=== PATIENT | male | born 1955 | race Caucasian/White ===

== ENCOUNTER → 2017-04-28 | Outpatient (CLI) | payer OTHER ==
--- NOTE | ~2017-04-28 | MR113 ---
[facility] A Service of [facility] & [facility] RADIOLOGY TEXT RESULTS PATIENT: SARA MAGANA LOCATION: [facility] : 55 UNIT #: [id number] AGE: [address]: Gabino Mcgovern MD SEX: M ORDER DR: [id number] [address] [address] [id number] MR#: [id number] Acc #: [id number] NAME: SARA MAGANA : 1955 SEX: M STUDY DATE/TIME: 04/28/2017 13:13 UNIT: [facility] ROOM: STUDY DESCRIPTION: MR Lumbar Wo Contrast Attending Physician: Gabino Mcgovern M.D. Referring Physician: Gabino Mcgovern M.D. Ordering Physician: Gabino Mcgovern M.D. Primary Care Physician: Gabino Mcgovern M.D. MRI CENTER REPORT This report is preliminary unless electronic signature is present. EXAM MRI of the lumbar spine without contrast dated 04/28/2017. COMPARISON Plain films lumbar spine dated 04/24/2017. HISTORY Increasing low back pain for 3-4 months, worse in the last month, with right lower extremity radiculopathy. TECHNIQUE Multisequence multiplanar imaging of the lumbar spine was obtained without contrast. FINDINGS Vertebral body heights and alignment are preserved. Degenerative disc signal loss is at multiple levels. Conus terminates at T12-L1. Signals of conus and cauda equina are within normal limits. Pre- and paravertebral soft tissues do not demonstrate any significant abnormality. L1-2: Suspicious small left foraminal protrusion extending towards the extraforaminal region. Mild left neural foraminal encroachment. No canal stenosis. L2-3: Concentric disc bulge with superimposed bilateral foraminal to extraforaminal broad-based protrusions, slightly prominent in the left. Mild bilateral neural foraminal narrowing is seen with mild bilateral facet hypertrophic changes and borderline-sized to mild canal stenosis. L3-4: Concentric disc bulge with superimposed bilateral foraminal to extraforaminal broad-based protrusions, slightly worse on the left. Mild bilateral neural foraminal narrowing is seen. Mild bilateral facet hypertrophic changes are noted with mild canal stenosis. Mild left lateral recess stenosis is seen. [facility] A Service of [facility] & [facility] RADIOLOGY TEXT RESULTS PATIENT: SARA MAGANA LOCATION: [facility] : 55 UNIT #: [id number] AGE: [address]: Gabino Mcgovern MD SEX: M ORDER DR: L4-5: Concentric disc bulge with tiny central protrusion. [id number] bilateral facet hypertrophic changes are noted with mild canal stenosis and mild inferior bilateral neural foraminal encroachment/mild narrowing without nerve impingement. L5-S1: Mild disc bulge with tiny central protrusion. No significant canal stenosis or neural foraminal narrowing. IMPRESSION 1. Multilevel degenerative changes are noted, slightly worse at L3-4 and L4-5. 2. No fracture, bone edema, mass or pars defects. Dictated by... Devika Paul M.D. THIS IS AN ELECTRONICALLY VERIFIED REPORT Devika Paul M.D. at 05/01/2017 5:14 PM CPR/claudia TD: 05/01/2017 12:43 JOB #: [id number] MRI CENTER REPORT Page 1 of 1
== END | disposition home or self-care (01) ==
LOC: SMRI 12:35
DX: M54.16 Radiculopathy, lumbar region (principal); M47.26 Other spondylosis with radiculopathy, lumbar region
CPT/HCPCS: 72148